=== PATIENT | male | born 1960 | race Asian ===

== ENCOUNTER 2022-12-15 08:00 | Outpatient (CLI) | payer MEDICARE, MEDICAID ==
--- NOTE | 2022-12-15 22:51 | XRAY Report ---
PROCEDURE: Abdomen Acute INDICATIONS: EPIGASTRIC PAIN TECHNIQUE: 2 views of the abdomen were acquired. COMPARISON: None. FINDINGS: Surgical changes and devices: None. Chest: Lungs are clear. Heart size is normal. No pleural effusions. No pneumoperitoneum. Bowel: No pneumoperitoneum. The bowel gas pattern is normal. Stool load within normal limits. Soft tissues: No masses; visualized solid organ contours appear normal in size. No suspicious abdom inal calcifications. Bones: No suspicious bony abnormalities. Degenerative changes of the bilateral hips IMPRESSION: No acute abdominal or chest pathology. Reviewed by: Satnam Jeong MD on 12/15/2022 10:49 PM PDT Approved by: Satnam Jeong MD on 12/15/2022 10:49 PM PDT Station ID: [id number]
== END 2022-12-15 23:59 | disposition home or self-care (01) ==
LOC: DI.S 08:00
PROVIDERS: ATTEND Emergency Medicine
DX: R10.13 Epigastric pain (principal)

== ENCOUNTER 2023-11-26 10:27 | Outpatient (CLI) | payer MEDICARE, MEDICAID ==
[2023-11-26 15:26] LABS: BILIRUBIN,URINE NEGATIVE (NEGATIVE); GLUCOSE, URINE (UA) NEGATIVE (NEGATIVE); KETONES,URINE (UA) NEGATIVE (NEGATIVE); LEUKOCYTE ESTERASE, URINE NEGATIVE (NEGATIVE); NITRITE,URINE NEGATIVE (NEGATIVE); OCCULT BLOOD,URINE NEGATIVE (NEGATIVE); PH,URINE 5.5 PH (5.0-7.5); PROTEIN,URINE NEGATIVE (NEGATIVE); UROBILINOGEN,URINE 0.2 (NORMAL) E.U./dL (NORMAL)
[2023-11-26 16:17] LABS: CLARITY,URINE CLOUDY (CLEAR)
[2023-11-26 16:18] LABS: AMORPHOUS SEDIMENT,UR Marked /LPF; BACTERIA,URINE None Seen /HPF (None Seen); RBC,URINE None Seen /HPF (0-5); SQUAMOUS EPITHELIAL CELL,UR NONE SEEN (<= Few); WBC,URINE 0-3 /HPF (0-3)
== END 2023-11-26 10:28 | disposition home or self-care (01) ==
LOC: LAB.S 10:27
PROVIDERS: ATTEND Nurse Practitioner Acute Care
DX: R35.0 Frequency of micturition (principal); Z11.1 Encounter for screening for respiratory tuberculosis
CPT/HCPCS: 81001; 81599; 87086

== ENCOUNTER 2023-11-30 09:19 | Outpatient (CLI) | payer MEDICARE ==
--- NOTE | 2023-11-30 11:05 | CT Report ---
PROCEDURE: Abdomen/Pelvis WO INDICATIONS: DYSURIA TECHNIQUE: A CT scan of the abdomen and pelvis was performed without the use of intravenous contrast. Images we re recorded and evaluated at appropriate window settings. Reformats: coronal and sagittal. For radiat ion dose reduction, the following was used: automated exposure control, adjustment of mA and/or kV ac cording to patient size. COMPARISON: None. FINDINGS: Image quality: Diagnostic, but there is motion artifact Lower chest: Suspected basal reticulation, likely representing fibrotic changes. Probable superimpose d atelectasis. Liver: No contour deforming mass. Solid organs are not well evaluated without IV contrast. Gallbladder and biliary system: Unremarkable, nondilated Pancreas: Mild to moderate parenchymal atrophy. No ductal dilation Spleen: Nonenlarged Adrenals: No discrete nodules Kidneys: Probable renal cysts. No contour deforming solid mass is seen. No obstructing calcified ston e/hydronephrosis. Vessels and lymph nodes: No abdominal aortic aneurysm. No pathologic lymph nodes by size criteria. Sm all fat-containing right inguinal hernia. Bowel and peritoneum: No evidence of small bowel obstruction. No pathologic ascites. There are coloni c diverticula. Body wall: Mild rectus diastases, is nonobstructed bowel in the region Pelvis: There are prostate calcifications. The bladder is underdistended and hard to evaluate on CT, overall unremarkable There is mild perivesicular fat stranding. Bones: Unremarkable. There are degenerative changes. IMPRESSION: Mild perivascular fat stranding, correlate urinalysis. No obstructing calcified stone/hydronephrosis. Limited noncontrast CT, other findings above. Suspected basal pulmonary reticulation, not well evaluated due to motion artifact, possibly early ILD . Correlate with PFTs and high-resolution chest CT if clinically indicated. Reviewed by: Geoffrey Yee MD on 11/30/2023 11:03 AM PDT Approved by: Geoffrey Yee MD on 11/30/2023 11:03 AM PDT Station ID: [id number]
== END 2023-11-30 09:20 | disposition home or self-care (01) ==
LOC: DI 09:19
PROVIDERS: ATTEND Nurse Practitioner Acute Care
DX: N39.8 Other specified disorders of urinary system (principal); R35.0 Frequency of micturition

== ENCOUNTER 2024-02-03 08:38 | Outpatient (CLI) | payer MEDICARE | END 2024-02-03 08:39 | disposition critical access hospital (66) | LOC: EMS 08:38 | DX: S06.9X9A Unspecified intracranial injury with loss of consciousness of unspecified duration, initial encounter (principal); S01.81XA Laceration without foreign body of other part of head, initial encounter; W19.XXXA Unspecified fall, initial encounter; Y92.092 Bedroom in other non-institutional residence as the place of occurrence of the external cause; Z66 Do not resuscitate | CPT/HCPCS: A0425; A0429 ==

== ENCOUNTER 2024-02-03 09:02 | Emergency (ER) | payer MEDICARE ==
[2024-02-03 09:35] VITALS: BP 97/57; O2SAT 100
--- NOTE | 2024-02-03 09:57 | ED Physician Documentation ---
History of Present Illness - Stated complaint Stated Complaint: GLF - Chief complaint Chief Complaint: Trauma Hd/Nk - History obtained from History obtained from: Family, EMS - History of Present Illness Timing: Today Pain level max: 0 Pain level now: 0 - Additonal information Additional information: Patient is a 63-year-old male with severe frontotemporal dementia. Unable to give any history. He is DNR, comfort care, brought in by EMS after a fall today at his memory care facility. Has a laceration near the right eyebrow. PD PAST MEDICAL HISTORY - Past Medical History Past Medical History: Yes Neuro: Alzhiemer's, Dementia - Past Surgical History Past Surgical History: No - Allergies Allergies/Adverse Reactions: Allergies Allergy/AdvReac Type Severity Reaction Status Date / Time Unable to Assess Allergy Verified 02/03/24 09:15 - Social History Does the pt smoke?: No Smoking Status: Never smoker Does the pt drink ETOH?: No Does the pt have substance abuse?: No - Immunizations Immunizations are current?: Yes PD ED PE NORMAL - Vitals Vital signs reviewed: Yes - General General: No acute distress, Well developed/nourished - HEENT HEENT: PERRL, EOMI, Other (Laceration to the right eyebrow area. No scalp hematomas. No palpable skull fractures.) - Neck Neck: No bony TTP - Cardiac Cardiac: RRR - Respiratory Respiratory: No respiratory distress, Clear bilaterally - Derm Derm: Warm and dry - Extremities Extremities: No deformity, Normal ROM s pain - Neuro Neuro: Other (alert) Results - Vitals Vitals: Vital Signs - 24 hr 02/03/24 02/03/24 09:09 09:32 Temperature 36.2 C L Heart Rate 79 62 Respiratory 16 12 Rate Blood Pressure 108/73 97/57 L O2 Saturation 99 100 Oxygen O2 Source Room air Procedures - Laceration (location) Right eyebrow Length in cm: 3 Wound type: Linear, Clean Neurovascular status: Sensory intact, Motor intact, Vascular intact Wound preparation: Irrigated copiously NS, Wound explored, To the base Skin layer closure: Dermabond, Steri strips (T ring closure strip) Other: Tetanus UTD PD Medical Decision Making - ED course Complexity details: considered differential, d/w family ED course: Patient's came to the emergency department. She states that he is at his normal mental baseline. He is DNR, comfort care. Does not want any laboratory testing or imaging performed. She does request that the laceration be repaired. This was done. The patient will be sent back to his [facility] care facility. This document was made in part using voice recognition software. While efforts are made to proofread this document, sound alike and grammatical errors may occur. Departure - Departure Disposition: 01 Home, Self Care Clinical Impression: Facial laceration Qualifiers: Encounter type: initial encounter Qualified Code(s): S01.81XA - Laceration without foreign body of other part of head, initial encounter Closed head injury Qualifiers: Encounter type: initial encounter Qualified Code(s): S09.90XA - Unspecified injury of head, initial encounter Condition: Good Instructions: ED Head Injury Closed, ED Laceration Facial Skin Glue Follow-Up: your,doctor as needed [Other] Comments: The glue and Steri-Strip will fall off on its own within a few days, this laceration should heal on its own. I did speak with the patient's , she did not want any further intervention at this time including CAT scans or further assessment. Forms: PCP List Discharge Date/Time: 02/03/24 10:04
== END 2024-02-03 10:04 | disposition home or self-care (01) ==
LOC: EDUNIT# → ED 09:02
DX: S09.90XA Unspecified injury of head, initial encounter (principal); S01.111A Laceration without foreign body of right eyelid and periocular area, initial encounter; W19.XXXA Unspecified fall, initial encounter; Y92.199 Unspecified place in other specified residential institution as the place of occurrence of the external cause; Z66 Do not resuscitate
CPT/HCPCS: 12013; 99283

== ENCOUNTER 2024-02-03 10:04 | Outpatient (CLI) | payer MEDICARE | END 2024-02-03 10:05 | disposition home or self-care (01) | LOC: EMS 10:04 | PROVIDERS: ATTEND Emergency Medicine | DX: R41.0 Disorientation, unspecified (principal); R53.83 Other fatigue; F03.90 Unspecified dementia, unspecified severity, without behavioral disturbance, psychotic disturbance, mood disturbance, and anxiety; S01.81XA Laceration without foreign body of other part of head, initial encounter; W18.30XA Fall on same level, unspecified, initial encounter | CPT/HCPCS: A0425; A0428 ==

== ENCOUNTER 2024-02-19 22:23 | Outpatient (CLI) | payer MEDICARE | END 2024-02-19 22:24 | disposition critical access hospital (66) | LOC: EMS 22:23 | DX: R04.0 Epistaxis (principal); W08.XXXA Fall from other furniture, initial encounter; Y93.84 Activity, sleeping; Y92.008 Other place in unspecified non-institutional (private) residence as the place of occurrence of the external cause; F03.90 Unspecified dementia, unspecified severity, without behavioral disturbance, psychotic disturbance, mood disturbance, and anxiety | CPT/HCPCS: A0425; A0429 ==

== ENCOUNTER 2024-02-19 22:41 | Emergency (ER) | payer MEDICARE ==
--- NOTE | 2024-02-19 22:48 | ED Physician Documentation ---
History of Present Illness - Stated complaint Stated Complaint: FALL - History obtained from History obtained from: EMS - History of Present Illness Timing: Today Pain level max: 0 Pain level now: 0 - Additonal information Additional information: Patient is a 63-year-old male who has severe frontotemporal dementia. [facility], [facility]. Rolled off the couch today and suffered a nosebleed. The nosebleed had stopped prior to EMS arrival. Staff at the [facility] care facility told EMS that the patient's wanted him transferred. There are no other complaints. No evidence of any other injuries. Review of Systems Unable to obtain: Dementia PD PAST MEDICAL HISTORY - Past Medical History Neuro: Alzhiemer's, Dementia - Past Surgical History Past Surgical History: No - Allergies Allergies/Adverse Reactions: Allergies Allergy/AdvReac Type Severity Reaction Status Date / Time No Known Drug Allergies Allergy Verified 02/19/24 22:45 - Social History Does the pt smoke?: No Smoking Status: Never smoker Does the pt drink ETOH?: No Does the pt have substance abuse?: No - Immunizations Immunizations are current?: Yes PD ED PE NORMAL - Vitals Vital signs reviewed: Yes - General General: No acute distress, Other (Alert, at his normal baseline, , Not oriented to person, place or time) - HEENT HEENT: Atraumatic, PERRL, Moist mucous membranes, Other (Small dried blood in the bilateral naris. No active bleeding. No facial bone tenderness. No obvious deformity) - Neck Neck: Supple, no meningeal sign, No bony TTP - Cardiac Cardiac: RRR - Respiratory Respiratory: No respiratory distress, Clear bilaterally - Abdomen Abdomen: Soft, Non tender, Non distended - Back Back: No spinal TTP - Derm Derm: Warm and dry - Extremities Extremities: Normal ROM s pain - Neuro Neuro: Other (alert) Results - Vitals Vitals: Vital Signs - 24 hr 02/19/24 22:45 Temperature 36.8 C Heart Rate 78 Respiratory 16 Rate Blood Pressure 138/77 H O2 Saturation 98 Oxygen O2 Source Room air PD Medical Decision Making - ED course Complexity details: considered differential ED course: 63-year-old male with severe frontotemporal dementia. He is at his normal baseline. RN contacted the patient's , confirms that she does not want any testing performed. This is consistent with my prior conversation with her a few weeks ago. She states that she told the [facility] to only transport him if the paramedics thought it was medically necessary. There is no emergency medical condition at this time. Patient is comfort care, will have him returned with EMS to his memory care facility. This document was made in part using voice recognition software. While efforts are made to proofread this document, sound alike and grammatical errors may occur. Departure - Departure Disposition: 01 Home, Self Care Clinical Impression: Epistaxis Fall Qualifiers: Encounter type: initial encounter Qualified Code(s): W19.XXXA - Unspecified fall, initial encounter Condition: Good Instructions: ED Nosebleed, ED Mechanical Fall Follow-Up: your,doctor as needed [Other] Comments: We have contacted the patient's bethany. She does not want any testing performed. As we have discussed, the patient is DNR, comfort care and she prefers no transport to the hospital unless absolutely necessary.
[2024-02-19 22:52] VITALS: O2SAT 98
[2024-02-19 23:02] VITALS: BP 132/68
== END 2024-02-19 22:55 | disposition home or self-care (01) ==
LOC: EDUNIT# → ED 22:41
DX: R04.0 Epistaxis (principal); W08.XXXA Fall from other furniture, initial encounter; Y92.199 Unspecified place in other specified residential institution as the place of occurrence of the external cause; G31.09 Other frontotemporal neurocognitive disorder; F02.C0 Dementia in other diseases classified elsewhere, severe, without behavioral disturbance, psychotic disturbance, mood disturbance, and anxiety; G30.9 Alzheimer's disease, unspecified; Z66 Do not resuscitate
CPT/HCPCS: 99281; 99282

== ENCOUNTER 2024-02-19 22:54 | Outpatient (CLI) | payer MEDICARE | END 2024-02-19 22:55 | disposition home or self-care (01) | LOC: EMS 22:54 | PROVIDERS: ATTEND Emergency Medicine | DX: F03.90 Unspecified dementia, unspecified severity, without behavioral disturbance, psychotic disturbance, mood disturbance, and anxiety (principal); R41.0 Disorientation, unspecified | CPT/HCPCS: A0425; A0428 ==